=== PATIENT | female | born 1990 | race African-American/Black ===

== ENCOUNTER → 2020-08-24 | Outpatient (REF) | payer OTHER | LOC: M PLALAB 09:19 | PROVIDERS: ATTEND Advanced Practice Midwife | DX: O23.599 Infection of other part of genital tract in pregnancy, unspecified trimester (principal); Z3A.00 Weeks of gestation of pregnancy not specified | CPT/HCPCS: 36415; 84702; G0123; G0463 ==

== ENCOUNTER → 2020-09-15 | Outpatient (CLI) | payer OTHER ==
[2020-09-15 13:12] LABS: HEMATOCRIT 38.5 % (36.0-47.0); HEMOGLOBIN 11.9 g/dl (12.0-15.5); MEAN CORPUSCULAR HGB CONC 30.9 g/dl (32.0-36.5); MEAN CORPUSCULAR VOLUME 87.5 fl (80.0-96.0); PLATELET COUNT, AUTOMATED 420 10^3/uL (150-450); WHITE BLOOD COUNT 7.5 10^3/uL (4.0-10.0)
[2020-09-15 13:29] LABS: GLUCOSE CHALLENGE TEST 1 HOUR 119 MG/DL (LESS THAN 140)
[2020-09-15 13:36] LABS: TOTAL PROTEIN,RANDOM URINE 9.7 MG/DL (0.0-12.0)
[2020-09-15 14:25] LABS: HEPATITIS C VIRUS ABY INDEX 0.1 INDEX (<0.8)
[2020-09-15 14:26] LABS: HIV 1&2 SCREEN CENTAUR NEGATIVE (NEGATIVE)
[2020-09-16 10:51] LABS: GC DNA AMPLIFICATION NEGATIVE (NEGATIVE)
== END ==
LOC: M PLALAB 09:45
PROVIDERS: ATTEND Advanced Practice Midwife
DX: O99.511 Diseases of the respiratory system complicating pregnancy, first trimester (principal)

== ENCOUNTER → 2020-09-26 | Outpatient (CLI) | payer OTHER | LOC: M PLALAB 15:44 | PROVIDERS: ATTEND Advanced Practice Midwife | DX: O36.1910 Maternal care for other isoimmunization, first trimester, not applicable or unspecified (principal) ==

== ENCOUNTER → 2020-10-06 | Outpatient (REF) | payer OTHER | LOC: M SFHCWAGY 12:48 | PROVIDERS: ATTEND Advanced Practice Midwife | DX: O36.1910 Maternal care for other isoimmunization, first trimester, not applicable or unspecified (principal) | CPT/HCPCS: 87086; G0463 ==

== ENCOUNTER → 2020-12-05 | Outpatient (CLI) | payer OTHER ==
--- NOTE | 2020-12-05 11:21 | REP ---
INDICATION: ANATOMY. COMPARISON: None. TECHNIQUE: Transabdominal obstetric sonography. FINDINGS: Scanning through the gravid uterus demonstrates a viable single intrauterine gestation in transverse lie. motion is observed and heart rate is recorded at 142 beats per minute. A posterior placenta is seen, grade 1, without evidence of placenta previa. Closed cervical length is measured at 4.5 cm transabdominally. No extrauterine abnormality is observed. Amniotic fluid is subjectively normal. The following anatomic structures are less than optimally identified due to position: Face and profile nose and lips, four-chamber heart with left and right ventricular outflow tract views, and spine. The following anatomic structures are identified felt to be unremarkable: cranium and intracranial contents, lungs, diaphragm, left-sided stomach, abdominal wall cord insertion, right and left kidney, urinary bladder, upper and lower extremities, three-vessel cord. Biometry chart: BPD 5.0 cm, 21 weeks 2 days Head circumference 19.2 cm, 21 weeks 3 days Abdominal circumference 18.1 cm, 22 weeks 6 days Femur length 3.8 cm, 22 weeks 0 days Humeral length 3.6 cm, 22 weeks 4 days HC AC ratio normal 1.06 Cephalic index normal 0.72 Estimated weight 495 g, 1 lb 1 oz, 95th percentile for 21 weeks 1 day IMPRESSION: Viable single intrauterine gestation at 22 weeks 0 days by today's composite sonographic criteria. TRACY by today's sonography April 10, 2021. No complication identified. Expected gestational age estimate from known TRACY, 16 April 2021 is 21 weeks 1 day. anatomic survey less than complete as above.. <Electronically signed by Rafael Logan > 12/05/20 [id number]
== END ==
LOC: M WHC 07:59
PROVIDERS: ATTEND Specialist
DX: Z34.82 Encounter for supervision of other normal pregnancy, second trimester (principal); Z36.89 Encounter for other specified antenatal screening; Z3A.22 22 weeks gestation of pregnancy